=== PATIENT | male | born 1940 | race Caucasian/White ===

== ENCOUNTER 2017-12-12 09:25 | Inpatient (IN) | payer OTHER ==
[~2017-12-12] VITALS: Ht 167.6 cm; Wt 86.8 kg
[~2017-12-12 09:25] MED LIST: Asmanex Twisthaler 2 IH; CRESTOR20 MG PO; Colace PO; FORADIL AEROLI12 MCG IH; FORADIL12 MCG IH; NORVASC5 MG PO; PROAIR HFA8.5 GM IH; PROVENTIL,200 INHALA; Proventil,Ventolin H IH; SPIRIVA1 INHALATI IH; ZOCOR40 MG PO; predniSONE PO
[2017-12-12 09:46] LABS: BASOPHIL (%) 0.9 % (0-1); BASOPHIL COUNT 0.1 K/uL (0-0.1); EOSINOPHIL (%) 2.5 % (0-5); EOSINOPHIL COUNT 0.3 K/uL (0-0.3); HEMATOCRIT 43.1 % (38.0-50.0); HEMOGLOBIN 13.5 G/DL (12.5-16.6); IMMATURE GRANULOCYTE (%) 0.2 % (0.0-0.7); LYMPHOCYTE (%) 14.4 % (15-42); LYMPHOCYTE COUNT 1.8 K/uL (1.0-2.8); MCH 29.9 PG (29.0-34.0); MCHC 31.3 G/DL (30.0-36.0); MCV 95.4 FL (86-99); MONOCYTE (%) 4.7 % (3-12); MONOCYTE COUNT 0.6 K/uL (0-0.8); NEUTROPHIL (%) 77.3 % (45-76); NEUTROPHIL COUNT 9.4 K/uL (1.8-6.4); PLATELET COUNT 265 K/uL (156-360); RBC DIS.WIDTH-CV 14.6 % (11.8-14.6); RBC DIS.WIDTH-SD 51.1 % (39-53); RED BLOOD COUNT 4.52 M/uL (4.00-5.50); WHITE BLOOD COUNT 12.1 K/uL (4.1-10.2)
[2017-12-12 09:49] LABS: BASE EXCESS 2.1 mEq/L (-3 to +3); BICARBONATE 32.3 mEq/L (22-26); CARBOXY HGB 2.6 % (0-5); COMMENTS - BLOOD GASES +C; PCO2 79 mm Hg (35-45); PO2 187 mm Hg (80-100); SITE LR +A
[2017-12-12 09:50] LABS: CONTINUOUS POS AIRWAY PRESSURE 7 cm H2O; DEVICE PB980; FI02 100 %; MODE NIV; PRES. SUPPORT 16 CM/H2O; TOTAL RESP RATE 27 resp/min
[2017-12-12 09:51] LABS: pH 7.22 (7.35-7.45)
[2017-12-12 09:51] LABS: INTER. NORMALIZED RATIO 1.1
[2017-12-12 09:54] LABS: PTT 27.1 SEC (25-37)
[2017-12-12 09:57] LABS: CHLORIDE 102 mEq/L (99-109); POTASSIUM 4.4 mEq/L (3.7-5.4); SODIUM 140 mEq/L (136-147)
[2017-12-12 09:58] LABS: GLUCOSE 236 mg/dL (70-99)
[2017-12-12 10:02] LABS: CREATININE 0.8 mg/dL (0.6-1.3); GFR ESTIMATE (CALCULATED) > 59 mL/min/ (58.99-99999)
[2017-12-12 10:03] LABS: UREA NITROGEN (BUN) 10 mg/dL (9-23)
[2017-12-12 10:07] LABS: TROP-I INTERPRETATION NEGATIVE; TROPONIN-I < 0.01 ng/mL (0.0-0.30)
[2017-12-12 11:20] LABS: BASE EXCESS 3.7 mEq/L (-3 to +3); BICARBONATE 31.4 mEq/L (22-26); CARBOXY HGB 2.2 % (0-5); PCO2 61 mm Hg (35-45); PO2 71 mm Hg (80-100); pH 7.32 (7.35-7.45)
[2017-12-12 11:21] LABS: COMMENTS - BLOOD GASES +C; CONTINUOUS POS AIRWAY PRESSURE 7 cm H2O; DEVICE PB980; FI02 50 %; MODE NIV; PRES. SUPPORT 16 CM/H2O; SITE LR +A
[2017-12-12] MEDS ORDERED: LIPITOR80 MG PO (12:07)
[2017-12-12] MEDS ORDERED: LO-DOSE ASPIRIN81 M2 PO (12:08)
[2017-12-12] MEDS ORDERED: ALBUTEROL2.5 MG/3 M IH (12:08)
[2017-12-12] MEDS ORDERED: CYANOCOBALAM1000 MCG PO (12:10)
[2017-12-12] MEDS ORDERED: SYMBICORT60 INHALAT IH (12:10)
[2017-12-12] MEDS ORDERED: LATANOPROST2.5 ML BOTH EYES (12:12)
[2017-12-12] MEDS ORDERED: GUAIFENESIN200 M2 PO (12:12)
[2017-12-12] MEDS ORDERED: MULTIVITAMINS1 EAC6 PO (12:14)
[2017-12-12] MEDS ORDERED: OMEPRAZOLE20 MG PO (12:15)
[2017-12-12] MEDS ORDERED: TERAZOSIN HCL2 MG PO (12:16)
[2017-12-12 16:30] VITALS: BP 133/78
[2017-12-12 17:15] LABS: TROP-I INTERPRETATION NEGATIVE; TROPONIN-I 0.03 ng/mL (0.0-0.30)
[2017-12-12 19:29] VITALS: BP 136/63
[2017-12-12 22:21] LABS: TROP-I INTERPRETATION NEGATIVE; TROPONIN-I 0.02 ng/mL (0.0-0.30)
[2017-12-13] VITALS (22 sets, daily range): BP systolic 102–142; BP diastolic 58–90
[2017-12-13 03:08] LABS: BASE EXCESS 6.7 mEq/L (-3 to +3); BICARBONATE 38.9 mEq/L (22-26); CARBOXY HGB 2.2 % (0-5); COMMENTS - BLOOD GASES A+C+; DEVICE HHFNC; FI02 100 %; METHEMOGLOBIN 1.4 % (0-1.5); O2 FLOW 55 L/MIN; PCO2 109 mm Hg (35-45); PO2 58 mm Hg (80-100); SITE RR; TOTAL RESP RATE 26 resp/min
[2017-12-13 03:09] LABS: pH 7.16 (7.35-7.45)
[2017-12-13 03:59] LABS: BASOPHIL (%) 0.1 % (0-1); EOSINOPHIL (%) 0 % (0-5); HEMATOCRIT 42.3 % (38.0-50.0); HEMOGLOBIN 13.3 G/DL (12.5-16.6); IMMATURE GRANULOCYTE (%) 0.3 % (0.0-0.7); LYMPHOCYTE (%) 5.2 % (15-42); LYMPHOCYTE COUNT 0.5 K/uL (1.0-2.8); MCH 29.8 PG (29.0-34.0); MCHC 31.4 G/DL (30.0-36.0); MCV 94.6 FL (86-99); MONOCYTE (%) 1.4 % (3-12); MONOCYTE COUNT 0.1 K/uL (0-0.8); NEUTROPHIL COUNT 8.3 K/uL (1.8-6.4); PLATELET COUNT 272 K/uL (156-360); RBC DIS.WIDTH-CV 14.6 % (11.8-14.6); RBC DIS.WIDTH-SD 50.4 % (39-53); RED BLOOD COUNT 4.47 M/uL (4.00-5.50)
[2017-12-13 04:08] LABS: ALBUMIN 4.4 g/dL (3.2-4.8)
[2017-12-13 04:09] LABS: CHLORIDE 98 mEq/L (99-109); SODIUM 139 mEq/L (136-147)
[2017-12-13 04:11] LABS: GLUCOSE 185 mg/dL (70-99)
[2017-12-13 04:13] LABS: TOTAL BILIRUBIN 0.5 mg/dL (0.0-1.0)
[2017-12-13 04:14] LABS: ALKALINE PHOSPHATASE 90 IU/L (3-129)
[2017-12-13 04:15] LABS: CREATININE 0.9 mg/dL (0.6-1.3); GFR ESTIMATE (CALCULATED) > 59 mL/min/ (58.99-99999)
[2017-12-13 04:16] LABS: AST (GOT) 16 IU/L (2-34); UREA NITROGEN (BUN) 14 mg/dL (9-23)
[2017-12-13 04:18] LABS: ALT (GPT) 17 IU/L (3-49); POTASSIUM 5.3 mEq/L (3.7-5.4)
[2017-12-13 04:19] LABS: TROP-I INTERPRETATION NEGATIVE; TROPONIN-I 0.02 ng/mL (0.0-0.30)
[2017-12-13 04:40] LABS: PCO2 75 mm Hg (35-45); PO2 75 mm Hg (80-100); pH 7.28 (7.35-7.45)
[2017-12-13 04:41] LABS: BICARBONATE 35.2 mEq/L (22-26); CARBOXY HGB 2.2 % (0-5); SITE RR
[2017-12-13 04:42] LABS: COMMENTS - BLOOD GASES C+; DEVICE MASK VENT; FI02 60 %; MODE SPONT; PEEP 5 CM/H20; PRES. SUPPORT 15 CM/H2O; TOTAL RESP RATE 18 resp/min
[2017-12-14] VITALS (23 sets, daily range): BP systolic 102–128; BP diastolic 56–79
[2017-12-14 04:50] LABS: BASOPHIL (%) 0.1 % (0-1); EOSINOPHIL (%) 0 % (0-5); HEMATOCRIT 35.4 % (38.0-50.0); IMMATURE GRANULOCYTE (%) 0.9 % (0.0-0.7); LYMPHOCYTE COUNT 0.5 K/uL (1.0-2.8); MCH 29.6 PG (29.0-34.0); MCHC 31.6 G/DL (30.0-36.0); MCV 93.7 FL (86-99); MONOCYTE COUNT 0.4 K/uL (0-0.8); NEUTROPHIL COUNT 10.9 K/uL (1.8-6.4); PLATELET COUNT 239 K/uL (156-360); RBC DIS.WIDTH-CV 14.8 % (11.8-14.6); RBC DIS.WIDTH-SD 50.9 % (39-53); RED BLOOD COUNT 3.78 M/uL (4.00-5.50); WHITE BLOOD COUNT 11.8 K/uL (4.1-10.2)
[2017-12-14 04:52] LABS: HEMOGLOBIN 11.2 G/DL (12.5-16.6)
[2017-12-14 04:59] LABS: CHLORIDE 101 mEq/L (99-109); POTASSIUM 4.4 mEq/L (3.7-5.4); SODIUM 143 mEq/L (136-147)
[2017-12-14 05:01] LABS: GLUCOSE 143 mg/dL (70-99)
[2017-12-14 05:05] LABS: CREATININE 0.8 mg/dL (0.6-1.3); GFR ESTIMATE (CALCULATED) > 59 mL/min/ (58.99-99999); UREA NITROGEN (BUN) 21 mg/dL (9-23)
[2017-12-14 08:46] LABS: BASE EXCESS 13.1 mEq/L (-3 to +3); BICARBONATE 39.4 mEq/L (22-26); COMMENTS - BLOOD GASES A+C+; DEVICE HFNC; METHEMOGLOBIN 1.7 % (0-1.5); O2 FLOW 15 L/MIN; PCO2 58 mm Hg (35-45); PO2 50 mm Hg (80-100); SITE RR; TOTAL RESP RATE 24 resp/min; pH 7.44 (7.35-7.45)
[2017-12-15] VITALS (24 sets, daily range): BP systolic 104–131; BP diastolic 60–73
[2017-12-15 12:29] LABS: BASOPHIL (%) 0.1 % (0-1); EOSINOPHIL (%) 0 % (0-5); HEMATOCRIT 39.3 % (38.0-50.0); HEMOGLOBIN 12.2 G/DL (12.5-16.6); IMMATURE GRANULOCYTE (%) 0.6 % (0.0-0.7); LYMPHOCYTE (%) 7.4 % (15-42); LYMPHOCYTE COUNT 0.9 K/uL (1.0-2.8); MCH 30.3 PG (29.0-34.0); MCV 97.5 FL (86-99); MONOCYTE (%) 7.3 % (3-12); MONOCYTE COUNT 0.9 K/uL (0-0.8); NEUTROPHIL (%) 84.6 % (45-76); NEUTROPHIL COUNT 10.7 K/uL (1.8-6.4); PLATELET COUNT 248 K/uL (156-360); RBC DIS.WIDTH-SD 53.6 % (39-53); RED BLOOD COUNT 4.03 M/uL (4.00-5.50); WHITE BLOOD COUNT 12.6 K/uL (4.1-10.2)
[2017-12-15 12:50] LABS: ALBUMIN 3.7 G/DL (3.2-4.8); CHLORIDE 101 MEQ/L (99-109); MAGNESIUM 2.3 mg/dl (1.3-2.7); POTASSIUM 4.2 MEQ/L (3.7-5.4); SODIUM 142 MEQ/L (136-147); TOTAL BILIRUBIN 0.4 MG/DL (0.0-1.0)
[2017-12-15 12:55] LABS: ALKALINE PHOSPHATASE 53 IU/L (3-129); ALT (GPT) 12 IU/L (3-49); AST (GOT) 12 IU/L (2-34); CREATININE 0.8 MG/DL (0.6-1.3); GFR ESTIMATE (CALCULATED) > 59 mL/min/ (58.99-99999); GLUCOSE 145 mg/dL (70-99); PHOSPHORUS 3.6 mg/dL (2.5-4.9); UREA NITROGEN (BUN) 28 mg/dL (9-23)
[2017-12-15 16:48] LABS: HIGH-SENS C-REACTIVE PROTEIN 0.11 MG/DL (0.02-0.20)
[2017-12-16] VITALS (22 sets, daily range): BP systolic 110–137; BP diastolic 61–93
[2017-12-16 06:58] LABS: BASOPHIL (%) 0 % (0-1); EOSINOPHIL (%) 0 % (0-5); HEMATOCRIT 36.4 % (38.0-50.0); HEMOGLOBIN 11.6 G/DL (12.5-16.6); IMMATURE GRANULOCYTE (%) 0.6 % (0.0-0.7); LYMPHOCYTE (%) 5.9 % (15-42); LYMPHOCYTE COUNT 0.5 K/uL (1.0-2.8); MCH 30.7 PG (29.0-34.0); MCHC 31.9 G/DL (30.0-36.0); MCV 96.3 FL (86-99); MONOCYTE (%) 4.9 % (3-12); MONOCYTE COUNT 0.4 K/uL (0-0.8); NEUTROPHIL (%) 88.6 % (45-76); NEUTROPHIL COUNT 7.8 K/uL (1.8-6.4); PLATELET COUNT 219 K/uL (156-360); RBC DIS.WIDTH-SD 53.2 % (39-53); RED BLOOD COUNT 3.78 M/uL (4.00-5.50); WHITE BLOOD COUNT 8.8 K/uL (4.1-10.2)
[2017-12-16 07:28] LABS: ALBUMIN 3.4 G/DL (3.2-4.8); ALKALINE PHOSPHATASE 48 IU/L (3-129); ALT (GPT) 15 IU/L (3-49); AST (GOT) 14 IU/L (2-34); CHLORIDE 104 MEQ/L (99-109); CREATININE 0.7 MG/DL (0.6-1.3); GFR ESTIMATE (CALCULATED) > 59 mL/min/ (58.99-99999); GLUCOSE 132 mg/dL (70-99); MAGNESIUM 2.3 mg/dl (1.3-2.7); POTASSIUM 4.6 MEQ/L (3.7-5.4); SODIUM 145 MEQ/L (136-147); TOTAL BILIRUBIN 0.4 MG/DL (0.0-1.0); TOTAL PROTEIN 5.5 G/DL (6.4-8.3); UREA NITROGEN (BUN) 28 mg/dL (9-23)
[2017-12-17] VITALS (13 sets, daily range): BP systolic 112–138; BP diastolic 53–81
[2017-12-17 05:35] LABS: BASOPHIL (%) 0.1 % (0-1); EOSINOPHIL (%) 0 % (0-5); HEMATOCRIT 43.4 % (38.0-50.0); HEMOGLOBIN 12.7 G/DL (12.5-16.6); IMMATURE GRANULOCYTE (%) 1.2 % (0.0-0.7); LYMPHOCYTE (%) 3.1 % (15-42); LYMPHOCYTE COUNT 0.5 K/uL (1.0-2.8); MCH 29.3 PG (29.0-34.0); MCHC 29.3 G/DL (30.0-36.0); MCV 100.2 FL (86-99); MONOCYTE COUNT 0.9 K/uL (0-0.8); NEUTROPHIL (%) 89.6 % (45-76); PLATELET COUNT 270 K/uL (156-360); RBC DIS.WIDTH-CV 14.7 % (11.8-14.6); RBC DIS.WIDTH-SD 55.8 % (39-53); RED BLOOD COUNT 4.33 M/uL (4.00-5.50); WHITE BLOOD COUNT 15.6 K/uL (4.1-10.2)
[2017-12-17 06:22] LABS: ALBUMIN 4.1 G/DL (3.2-4.8); ALKALINE PHOSPHATASE 57 IU/L (3-129); ALT (GPT) 22 IU/L (3-49); AST (GOT) 18 IU/L (2-34); CHLORIDE 98 MEQ/L (99-109); CREATININE 0.9 MG/DL (0.6-1.3); GFR ESTIMATE (CALCULATED) > 59 mL/min/ (58.99-99999); GLUCOSE 166 mg/dL (70-99); MAGNESIUM 2.5 mg/dl (1.3-2.7); POTASSIUM 4.4 MEQ/L (3.7-5.4); SODIUM 148 MEQ/L (136-147); UREA NITROGEN (BUN) 37 mg/dL (9-23)
[2017-12-17 06:43] LABS: CARBON DIOXIDE (BICARBONATE) > 40.0 MEQ/L (20-31); PHOSPHORUS 5.1 mg/dL (2.5-4.9)
[2017-12-17 06:44] LABS: TOTAL BILIRUBIN 0.6 MG/DL (0.0-1.0); TOTAL PROTEIN 6.5 G/DL (6.4-8.3)
== END 2017-12-17 17:10 | DRG 193 ==
LOC: EME 09:25 → EDOF 11:47 → 4EAST 11:47 → 4WEST 11:47 → ENRESERV 11:55 → 4EAST 16:36 → ENRESERV 12-13 03:16 → 4WEST 12-13 03:31 → CANRESERV 12-17 14:56 → ENRESERV 12-17 14:56 → 4WEST 12-17 17:10
PROVIDERS: Emergency Medicine; Hospitalist; Internal Medicine; Surgery
PROC: 5A0955Z Assistance with Respiratory Ventilation, Greater than 96 Consecutive Hours (ICD-10-PCS; principal; 2017-12-12)
DX: J18.9 Pneumonia, unspecified organism (principal); J96.21 Acute and chronic respiratory failure with hypoxia; I50.23 Acute on chronic systolic (congestive) heart failure; J44.1 Chronic obstructive pulmonary disease with (acute) exacerbation; J96.22 Acute and chronic respiratory failure with hypercapnia; C18.9 Malignant neoplasm of colon, unspecified; J90 Pleural effusion, not elsewhere classified; I42.0 Dilated cardiomyopathy; E87.2 Acidosis; K56.609 Unspecified intestinal obstruction, unspecified as to partial versus complete obstruction; I48.91 Unspecified atrial fibrillation; Z51.5 Encounter for palliative care; K56.7 Ileus, unspecified; J44.0 Chronic obstructive pulmonary disease with (acute) lower respiratory infection; I11.0 Hypertensive heart disease with heart failure; G43.909 Migraine, unspecified, not intractable, without status migrainosus; I71.4 Abdominal aortic aneurysm, without rupture; I44.7 Left bundle-branch block, unspecified; E78.5 Hyperlipidemia, unspecified; K21.9 Gastro-esophageal reflux disease without esophagitis; Z87.891 Personal history of nicotine dependence; Z90.49 Acquired absence of other specified parts of digestive tract; Z99.81 Dependence on supplemental oxygen; Z87.442 Personal history of urinary calculi; Z66 Do not resuscitate; N20.0 Calculus of kidney
CPT/HCPCS: 36600; 71045; 71275; 74177; 80048; 80053; 80202; 82803; 83605; 83735; 83880; 84100; 84145 90; 84484; 85025; 85027; 85610; 85730; 86141; 87040; 87070; 87205; 87449; 87502; 87641; 93005; 93306; 94002; 94003; 94010; 94640 76; 94644; 94760; 94799; 99202; 99281; 99285; J0456; J1100; J1650; J1940; J2270; J2405; J2543; J2920; J2930; J3370; J7050; J7644